=== PATIENT | male | born 1940 | race Caucasian/White ===

== ENCOUNTER 2019-01-12 13:33 | Inpatient (IN) ==
[2019-01-12] MEDS ORDERED: SODIUM CHLORIDE 0.9% 1,000 ML IV STA (14:09)
[2019-01-12] MEDS ORDERED: PANTOPRAZOLE 40 MG VIAL IV STA (14:09)
[2019-01-12] MEDS ORDERED: ONDANSETRON 4 MG/2 ML VIAL IV STA (14:09)
[2019-01-12 14:31] LABS: Basophils % 0.3 % (0.0-0.8); Eosinophils % 0.1 % (0.00-10.9); Hematocrit 22.3 VOL% (42.0-52.0); Hemoglobin 7.6 GM/DL (14.0-18.0); Immature Granulocytes % 1.7 %; Immature Granulocytes Absolute 0.25 #; Lymphocytes # 0.8 10*3/uL (1.4-4.0); Lymphocytes % 5.1 % (21.2-54.2); Mean Corpuscular HGB Conc 34.1 GM/DL (32-36); Mean Corpuscular Hemoglobin 31 PG (27-34); Mean Corpuscular Volume 91.8 FL (87-102); Mean Platelet Volume 10.8 FL (9.6-12.0); Monocytes # 0.5 10*3/uL (0.11-0.8); Monocytes % 3.5 % (1.7-12.7); Neutrophils # 13.2 10*3/uL (1.4-7.4); Neutrophils % 89.3 % (38.7-73.9); Platelet Count 138 T/CUMM (130-400); Red Blood Count 2.43 MC/CUMM (3.8-5.5); Red Cell Distribution Width 12.4 % (9.3-17.3); White Blood Count 14.8 T/CUMM (4-12)
[2019-01-12 14:47] LABS: PT Patient Result 10.4 SECS; Partial Thromboplastin Time < 21.0 SECS (0-40)
[2019-01-12] MEDS ORDERED: ALBUTEROL 2.5 MG/3 ML NEB RESP TX PRN (14:52)
[2019-01-12] MEDS ORDERED: ACETAMINOPHEN 325 MG TABLET PO PRN (14:52)
[2019-01-12] MEDS ORDERED: ONDANSETRON 4 MG/2 ML VIAL IV PRN (14:52)
[2019-01-12] MEDS ORDERED: SODIUM CHLORIDE 0.9% 1,000 ML IV PRN ×2 (14:55→15:57)
[2019-01-12 14:56] LABS: Alanine Aminotransferase 22 U/L (16-61); Albumin 2.5 G/DL (3.4-5.0); Alkaline Phosphatase 70 U/L (45-117); Aspartate Amino Transferase 15 U/L (0-37); Bilirubin,Total < 0.39 MG/DL (0.2-1.0); Blood Urea Nitrogen 61 MG/DL (7-18); Calcium 8.3 MG/DL (8.5-10.1); Glucose 318 MG/DL (74-106); Osmolality,Calculated 301.8 MOS/KG (273-304); Potassium 4.8 MMOL/L (3.5-5.1); Sodium 137 MMOL/L (136-145); Total Protein 4.8 G/DL (6.4-8.3)
[2019-01-12] MEDS ORDERED: DEXTROSE 50% 25 GM/50 ML SYRINGE IV PRN (15:56)
[2019-01-12] MEDS ORDERED: GLUCAGON 1 MG VIAL IM PRN (15:56)
[2019-01-12] MEDS: PANTOPRAZOLE 40 MG VIAL IV SCH (16:00)
[2019-01-12] MEDS: INSULIN LISPRO 100 UNIT/ML SUBCUT SCH (17:55)
[2019-01-12] MEDS: SODIUM CHLORIDE 0.9% 1,000 ML IV SCH (20:02)
[2019-01-12] MEDS: SIMVASTATIN 20 MG TABLET PO SCH (20:13)
[2019-01-12 23:23] LABS: Hemoglobin 8.1 GM/DL (14.0-18.0)
[2019-01-13] MEDS: INSULIN LISPRO 100 UNIT/ML SUBCUT SCH ×5 (00:45→23:52)
[2019-01-13 02:36] LABS: Hematocrit 22.1 VOL% (42.0-52.0); Hemoglobin 7.4 GM/DL (14.0-18.0)
[2019-01-13 02:37] LABS: Basophils % 0.2 % (0.0-0.8); Eosinophils % 0.3 % (0.00-10.9); Hematocrit 21.8 VOL% (42.0-52.0); Hemoglobin 7.4 GM/DL (14.0-18.0); Immature Granulocytes % 1.4 %; Lymphocytes # 1.2 10*3/uL (1.4-4.0); Lymphocytes % 8.7 % (21.2-54.2); Mean Corpuscular HGB Conc 33.9 GM/DL (32-36); Mean Corpuscular Hemoglobin 31 PG (27-34); Mean Corpuscular Volume 90.5 FL (87-102); Mean Platelet Volume 10.5 FL (9.6-12.0); Monocytes % 6.8 % (1.7-12.7); NRBC # 0.05 10*3/uL; Neutrophils # 11.7 10*3/uL (1.4-7.4); Neutrophils % 82.6 % (38.7-73.9); Platelet Count 103 T/CUMM (130-400); Red Blood Count 2.41 MC/CUMM (3.8-5.5); Red Cell Distribution Width 13.4 % (9.3-17.3); White Blood Count 14.1 T/CUMM (4-12)
[2019-01-13 03:10] LABS: Calcium 7.5 MG/DL (8.5-10.1); Osmolality,Calculated 299.3 MOS/KG (273-304); Potassium 4.1 MMOL/L (3.5-5.1)
[2019-01-13] MEDS: PANTOPRAZOLE 40 MG VIAL IV SCH ×2 (03:53→14:20)
[2019-01-13] MEDS: SODIUM CHLORIDE 0.9% 1,000 ML IV SCH ×3 (04:21→22:48)
[2019-01-13] MEDS: TAMSULOSIN 0.4 MG CAPSULE PO SCH (08:56)
[2019-01-13] MEDS ORDERED: PROPOFOL 200 MG/20 ML VIAL IV ONE (10:00)
[2019-01-13] MEDS ORDERED: ETOMIDATE 20 MG/10 ML VIAL IV ONE (10:00)
[2019-01-13] MEDS ORDERED: LIDOCAINE 2% 5 ML VIAL ONE (10:00)
[2019-01-13 12:32] LABS: Hematocrit 26.8 VOL% (42.0-52.0)
[2019-01-13 12:40] LABS: Hemoglobin 9.1 GM/DL (14.0-18.0)
[2019-01-13 14:59] LABS: Hematocrit 27.3 VOL% (42.0-52.0); Hemoglobin 9.2 GM/DL (14.0-18.0)
[2019-01-13] MEDS: SIMVASTATIN 20 MG TABLET PO SCH (21:35)
[2019-01-13] MEDS ORDERED: LORazepam 2 MG/1 ML VIAL IV PRN (22:06)
[2019-01-13] MEDS ORDERED: SODIUM CHLORIDE 0.9% 500 ML IV ONE (22:06)
[2019-01-13 22:32] LABS: Hematocrit 24.2 VOL% (42.0-52.0); Hemoglobin 8.3 GM/DL (14.0-18.0)
[2019-01-14] MEDS: PANTOPRAZOLE 40 MG VIAL IV SCH ×2 (02:57→14:26)
[2019-01-14 05:55] LABS: Basophils % 0.1 % (0.0-0.8); Eosinophils # 0.1 10*3/uL (0.0-0.87); Eosinophils % 0.5 % (0.00-10.9); Hematocrit 23.2 VOL% (42.0-52.0); Hemoglobin 7.9 GM/DL (14.0-18.0); Immature Granulocytes % 0.7 %; Immature Granulocytes Absolute 0.12 #; Lymphocytes # 1.2 10*3/uL (1.4-4.0); Lymphocytes % 7.1 % (21.2-54.2); Mean Corpuscular HGB Conc 34.1 GM/DL (32-36); Mean Corpuscular Hemoglobin 31 PG (27-34); Mean Corpuscular Volume 89.6 FL (87-102); Mean Platelet Volume 10.4 FL (9.6-12.0); Monocytes # 1.1 10*3/uL (0.11-0.8); Monocytes % 6.8 % (1.7-12.7); NRBC # 0.03 10*3/uL; Neutrophils # 14.1 10*3/uL (1.4-7.4); Neutrophils % 84.8 % (38.7-73.9); Platelet Count 114 T/CUMM (130-400); Red Blood Count 2.59 MC/CUMM (3.8-5.5); Red Cell Distribution Width 14.5 % (9.3-17.3); White Blood Count 16.6 T/CUMM (4-12)
[2019-01-14 06:17] LABS: Calcium 7.4 MG/DL (8.5-10.1); Osmolality,Calculated 288.3 MOS/KG (273-304); Potassium 3.8 MMOL/L (3.5-5.1)
[2019-01-14] MEDS: INSULIN LISPRO 100 UNIT/ML SUBCUT SCH ×3 (07:34→17:56)
[2019-01-14] MEDS: TAMSULOSIN 0.4 MG CAPSULE PO SCH (08:20)
[2019-01-14] MEDS ORDERED: SODIUM CHLORIDE 0.9% 1,000 ML IV PRN (09:56)
[2019-01-14 18:49] LABS: Hematocrit 26.9 VOL% (42.0-52.0)
[2019-01-14] MEDS: SIMVASTATIN 20 MG TABLET PO SCH (20:22)
[2019-01-14] MEDS: SODIUM CHLORIDE 0.9% 1,000 ML IV SCH (20:25)
[2019-01-15] MEDS: INSULIN LISPRO 100 UNIT/ML SUBCUT SCH ×4 (00:33→17:52)
[2019-01-15] MEDS: SODIUM CHLORIDE 0.9% 1,000 ML IV SCH ×3 (02:06→20:59)
[2019-01-15] MEDS: PANTOPRAZOLE 40 MG VIAL IV SCH ×2 (04:18→17:53)
[2019-01-15 04:43] LABS: Basophils % 0.2 % (0.0-0.8); Eosinophils # 0.2 10*3/uL (0.0-0.87); Eosinophils % 1.9 % (0.00-10.9); Hematocrit 27.1 VOL% (42.0-52.0); Hemoglobin 8.9 GM/DL (14.0-18.0); Immature Granulocytes % 0.9 %; Immature Granulocytes Absolute 0.08 #; Lymphocytes % 12.1 % (21.2-54.2); Mean Corpuscular HGB Conc 32.8 GM/DL (32-36); Mean Corpuscular Hemoglobin 29 PG (27-34); Mean Corpuscular Volume 88.6 FL (87-102); Mean Platelet Volume 10.7 FL (9.6-12.0); Monocytes # 0.8 10*3/uL (0.11-0.8); Monocytes % 9.4 % (1.7-12.7); NRBC # 0.03 10*3/uL; Neutrophils # 6.5 10*3/uL (1.4-7.4); Neutrophils % 75.5 % (38.7-73.9); Platelet Count 112 T/CUMM (130-400); Red Blood Count 3.06 MC/CUMM (3.8-5.5); Red Cell Distribution Width 16.2 % (9.3-17.3); White Blood Count 8.6 T/CUMM (4-12)
[2019-01-15 05:03] LABS: Calcium 7.4 MG/DL (8.5-10.1); Osmolality,Calculated 285.1 MOS/KG (273-304); Potassium 3.5 MMOL/L (3.5-5.1)
[2019-01-15] MEDS: TAMSULOSIN 0.4 MG CAPSULE PO SCH (08:31)
[2019-01-15 15:14] LABS: Hemoglobin 9.8 GM/DL (14.0-18.0)
[2019-01-15] MEDS ORDERED: CYCLOBENZAPRINE 10 MG TABLET PO PRN (19:42)
[2019-01-15] MEDS: SIMVASTATIN 20 MG TABLET PO SCH (20:55)
[2019-01-16] MEDS: INSULIN LISPRO 100 UNIT/ML SUBCUT SCH ×3 (01:20→14:01)
[2019-01-16] MEDS: PANTOPRAZOLE 40 MG VIAL IV SCH (02:34)
[2019-01-16 03:29] LABS: Hematocrit 27.6 VOL% (42.0-52.0); Hemoglobin 9.2 GM/DL (14.0-18.0)
[2019-01-16 03:47] LABS: Calcium 7.6 MG/DL (8.5-10.1); Osmolality,Calculated 279.4 MOS/KG (273-304); Potassium 3.6 MMOL/L (3.5-5.1)
[2019-01-16] MEDS: SODIUM CHLORIDE 0.9% 1,000 ML IV SCH ×2 (07:30→14:00)
[2019-01-16 08:10] VITALS: BP 122/61
[2019-01-16] MEDS: TAMSULOSIN 0.4 MG CAPSULE PO SCH (10:56)
== END 2019-01-16 14:30 | disposition home or self-care (01) | DRG 378 ==
LOC: N.ED 13:33 → SUATTDRO 14:36 → N.EDINP 14:53 → N.CC 15:29 → N.4E 01-14 03:27
PROVIDERS: ADMIT Internal Medicine; ATTEND Internal Medicine